=== PATIENT | female | born 1990 | race American Indian/Alaskan Native ===

== ENCOUNTER 2018-08-07 18:42 | Emergency (ER) | payer OTHER ==
--- NOTE | 2018-08-07 19:39 | Emergency Department Report ---
Blank Doc - Documentation Documentation: This is a 27-year-old female that presents with abdominal pain with n/v x1 week. This initial assessment/diagnostic orders/clinical plan/treatment(s) is/are subject to change based on patient's health status, clinical progression and re- assessment by fellow clinical providers in the ED. Further treatment and workup at subsequent clinical providers discretion. Patient/guardians urged not to elope from the ED as their condition may be serious if not clinically assessed and managed. Initial orders include: 1- Patient sent to [facility] for further evaluation and treatment 2- labs 3- UA
[2018-08-07 20:09] LABS: Basophils % (Auto) 0.6 % (0.0-1.8); Eosinophils % (Auto) 0.6 % (0.0-4.3); Hematocrit 40.9 % (30.3-42.9); Hemoglobin 14.5 gm/dl (10.1-14.3); Lymphocytes # (Auto) 1.7 K/mm3 (1.2-5.4); Lymphocytes % (Auto) 30.7 % (13.4-35.0); Mean Corpuscular HGB Conc 35 % (30-34); Mean Corpuscular Volume 94 fl (79-97); Monocytes # (Auto) 0.7 K/mm3 (0.0-0.8); Monocytes % (Auto) 12.8 % (0.0-7.3); Platelet Count 263 K/mm3 (140-440); Red Blood Count 4.36 M/mm3 (3.65-5.03); Red Cell Distribution Width 13.5 % (13.2-15.2)
[2018-08-07 20:38] LABS: Alanine Aminotransferase 22 units/L (7-56); Albumin 4.5 g/dL (3.9-5); BUN/Creatinine Ratio 12; Blood Urea Nitrogen 11 mg/dL (7-17); Calcium 9.9 mg/dL (8.4-10.2); Hemolysis Index 12
[2018-08-07 20:39] LABS: Bilirubin,Direct < 0.2 mg/dL (0-0.2)
[2018-08-07 20:54] LABS: Bilirubin,Urine NEG (Negative); Blood,Urine NEG (Negative); Color,Urine Amber (Yellow); Hyaline Casts,Urine 10 /LPF; Mucus,Urine 3+ /HPF
[2018-08-07 20:58] VITALS: BP 142/95
[2018-08-07] MEDS ORDERED: NACL 0.9% 1000 ML 1,000 ML IV ONE (21:19)
--- NOTE | 2018-08-07 21:37 | Emergency Department Report ---
ED Abdominal Pain HPI - General Chief Complaint: Abdominal Pain Stated Complaint: N/V Time Seen by Provider: 08/07/18 19:37 Source: patient, EMS Mode of arrival: Stretcher Limitations: No Limitations - History of Present Illness Initial Comments: Mr. Marinelli is a 27-year-old female comes to the ER after being discharged from [facility] with complaints of nausea and vomiting. She states that the pain began over a week ago. She states that her grandmother just passed and she does not know why she was in [facility]. She has a history of asthma. She is allergic to Bactrim and Pyridium. There is no family with her. I asked her if she could call family given she was just discharged from [facility] and she says that when she was admitted there they took her phone. Rn will contract [facility] to clarify ongoing plan of care. Pt is in NAD in ER. She has had no n/v/d Severity scale (0 -10): 7 - Related Data Allergies Allergy/AdvReac Type Severity Reaction Status Date / Time phenazopyridine Allergy Unknown Verified 08/07/18 20:21 [From Pyridium] sulfamethoxazole Allergy Unknown Verified 08/07/18 20:21 [From Bactrim] trimethoprim [From Bactrim] Allergy Unknown Verified 08/07/18 20:21 ED Review of Systems ROS: Stated complaint: N/V Other details as noted in HPI Comment: All other systems reviewed and negative ED Past Medical Hx - Past Medical History Hx Asthma: Yes - Surgical History Past Surgical History?: No - Family History Family history: no significant - Social History Smoking Status: Never Smoker Substance Use Type: None ED Physical Exam - General Limitations: No Limitations General appearance: alert - Head Head exam: Present: normocephalic - Eye Eye exam: Present: normal appearance, PERRL - ENT ENT exam: Present: mucous membranes moist - Neck Neck exam: Present: normal inspection, full ROM - Respiratory Respiratory exam: Present: normal lung sounds bilaterally - Cardiovascular Cardiovascular Exam: Present: regular rate, normal rhythm (100 on exam) - GI/Abdominal GI/Abdominal exam: Present: soft - Rectal Rectal exam: Present: deferred - Extremities Exam Extremities exam: Present: normal inspection, full ROM - Back Exam Back exam: Present: normal inspection, full ROM - Neurological Exam Neurological exam: Present: alert, oriented X3 - Psychiatric Psychiatric exam: Present: depressed - Skin Skin exam: Present: warm, dry, intact ED Course Vital Signs 08/07/18 08/07/18 08/07/18 18:54 19:20 20:57 Temperature 98.5 F 98.7 F 99.2 F Pulse Rate 110 H 107 H 102 H Respiratory 18 18 17 Rate Blood Pressure 139/96 Blood Pressure 135/100 142/95 [Left] O2 Sat by Pulse 100 99 100 Oximetry ED Medical Decision Making - Lab Data Result diagrams: 08/07/18 19:57 08/07/18 19:57 - Medical Decision Making Labs 08/07/18 08/07/18 08/07/18 19:57 19:57 19:57 WBC 5.4 RBC 4.36 Hgb 14.5 H Hct 40.9 MCV 94 MCH 33 H MCHC 35 H RDW 13.5 Plt Count 263 Lymph % (Auto) 30.7 Davis % (Auto) 12.8 H Eos % (Auto) 0.6 Baso % (Auto) 0.6 Lymph # 1.7 Davis # 0.7 Eos # 0.0 Baso # 0.0 Seg Neutrophils % 55.3 Seg Neutrophils # 3.0 Sodium 137 Potassium 3.9 Chloride 96.0 L Carbon Dioxide 23 Anion Gap 22 BUN 11 Creatinine 0.9 Estimated GFR > 60 BUN/Creatinine Ratio 12 Glucose 113 H Calcium 9.9 Total Bilirubin 0.70 Direct Bilirubin < 0.2 Indirect Bilirubin 0.5 AST 31 ALT 22 Alkaline Phosphatase 47 Total Protein 8.7 H Albumin 4.5 Albumin/Globulin Ratio 1.1 Lipase 15 HCG, Qual Negative Urine Color Urine Turbidity Urine pH Ur Specific Laura Urine Protein Urine Glucose (UA) Urine Ketones Urine Blood Urine Nitrite Urine Bilirubin Urine Urobilinogen Ur Leukocyte Esterase Urine WBC (Auto) Urine RBC (Auto) U Epithel Cells (Auto) Hyaline Casts Urine Mucus 08/07/18 20:30 WBC RBC Hgb Hct MCV MCH MCHC RDW Plt Count Lymph % (Auto) Davis % (Auto) Eos % (Auto) Baso % (Auto) Lymph # Davis # Eos # Baso # Seg Neutrophils % Seg Neutrophils # Sodium Potassium Chloride Carbon Dioxide Anion Gap BUN Creatinine Estimated GFR BUN/Creatinine Ratio Glucose Calcium Total Bilirubin Direct Bilirubin Indirect Bilirubin AST ALT Alkaline Phosphatase Total Protein Albumin Albumin/Globulin Ratio Lipase HCG, Qual Urine Color Amina Urine Turbidity Slightly-cloudy Urine pH 5.0 Ur Specific Laura 1.040 H Urine Protein 100 mg/dl Urine Glucose (UA) Neg Urine Ketones 80 Urine Blood Neg Urine Nitrite Neg Urine Bilirubin Neg Urine Urobilinogen 4.0 Ur Leukocyte Esterase Neg Urine WBC (Auto) 6.0 Urine RBC (Auto) 1.0 U Epithel Cells (Auto) 4.0 Hyaline Casts 10 Urine Mucus 3+ Vital Signs 08/07/18 08/07/18 08/07/18 18:54 19:20 20:57 Temperature 98.5 F 98.7 F 99.2 F Pulse Rate 110 H 107 H 102 H Respiratory 18 18 17 Rate Blood Pressure 139/96 Blood Pressure 135/100 142/95 [Left] O2 Sat by Pulse 100 99 100 Oximetry LABS NOTED KETONES IN URINE 1L NS FOR HYDRATION pt has had no n/v/d in the [facility] HAS BEEN IN CONTACT WITH [facility] AND WILL DISPO PT PER THEIR INSTRUCTIONS. Critical care attestation.: If time is entered above; I have spent that time in minutes in the direct care of this critically ill patient, excluding procedure time. ED Disposition Clinical Impression: Ketonuria Disposition: DC-01 TO HOME OR SELFCARE Is pt being admited?: No Does the pt Need Aspirin: No Condition: Stable Instructions: Dehydration (ED) Additional Instructions: REGULAR DIET HYDRATE WELL WITH WATER FOLLOW UP WITH PCP REFERRAL BELOW TAKE MEDS PER [facility] AVOID ALCOHOL/DRUGS/TOBACCO FOLLOW UP WITH PSYCHIATRY INSTRUCTED RETURN TO ER IF THOUGHTS OF HURTING SELF OR OTHERS. Referrals: GARO MENA MD [Primary Care Provider] - 3-5 Days Time of Disposition: 22:16
== END 2018-08-07 22:20 | disposition home or self-care (01) ==
LOC: ED 18:42
DX: R82.4 Acetonuria (principal); R11.2 Nausea with vomiting, unspecified; J45.909 Unspecified asthma, uncomplicated
CPT/HCPCS: 36415; 80048; 80076; 81001; 83690; 84703; 85025; 96360; 99284; J7030